=== PATIENT | male | born 1970 | race Caucasian/White ===

== ENCOUNTER 2018-08-12 11:01 | Emergency (ER) | payer BC ==
--- OUTSIDE RECORDS SUMMARY | 2018-08-12 11:07 | XMS REPORT | Continuity of Care Document ---
:1970 Author Organization Interface Problems Problem Status Onset Classification Date Comments Source Date Reported Low testosterone Active Problem 01/20[facility]2015 [facility] Low HDL Active Problem 01/20/2015 [facility] Leg swelling Active Problem 01/20/2015 [facility] Prediabetes Active Problem 01/20/2015 [facility] Allergic Active Problem 01/20/2015 [facility] Hypogonadism in Active Problem 10/13/2015 [facility] Allergic Active Problem 10/13/2015 [facility] Pre-diabetes Active Problem 10/13/2015 [facility] ED Active Problem 10/13/2015 [facility] GILSON Active Problem 10/13/2015 [facility] Obesity Active Problem 10/13/2015 [facility] Tobacco abuse Active Diagnosis 07/01/2015 [facility] Sinusitis Active Diagnosis 07/01/2015 [facility] Postnasal drip Active Diagnosis 07/01/2015 [facility] Tobacco abuse Active Diagnosis 07/01/2015 [facility] Medications Medication Details Route Status Patient Ordering Order Source Instructions Provider Date Dymista 1 puff in Nasally Active 137-50 MCG/ACT [place] each Nasally Twice 016 Primary nostril [facility] Cialis 1 tablet Orally Active 20 MG Orally [place] every 24 hrs 016 [facility] Bactrim DS 1 tablet Orally Active 800-160 MG [place] Orally Once a 016 [facility] Chantix as Orally Active 0.5 MG X 11 & [place] Starting Month directed 1 MG X 42 015 Primary Rajat Orally every Care day (qd) Assoc Androderm as Transdermal Active 4 mg/24 hr [place] directed Transdermal 015 Primary Once a day [facility] Aspirin 1 tablet by mouth Active 81 MG by mouth [place] daily [facility] AndroGel Pump 3 pumps Transdermal Active 20.25 MG/ACT [place] (1.62%) Primary Transdermal Care daily Assoc Vitamin D 1 tablet Orally Active 5000 Orally [place] Once a day [facility] Multivitamins Unknown Orally Active Orally [place] [facility] Allergies, Adverse Reactions, Alerts Substance Category Reaction Severity Reaction Status Date Comments Source type Reported N.K.D.A. Adverse Info Not Adverse Active NE Reaction Available Reaction 6 [facility] Immunizations Immunization Date Given Site Status Last Updated Comments Source Results Order Results Value Reference Date Interpretation Comments Source Name Range Vital Signs Vital Sign Value Date Comments Source Weight 246.6 06/13/2015 [facility] Height 70 06/13/2015 [facility] Temperature Oral (F) 97.6 F 06/13/2015 [facility] Heart Rate 72 06/13/2015 [facility] Diastolic (mm Hg) 95 06/13/2015 [facility] Systolic (mm Hg) 156 06/13/2015 [facility] Encounters Location Location Encounter Encounter Reason Attending ADM DC Status Source Details Type Number For Provider Date Date Visit [facility] [id number] 12/05 12/05 [facility] Primary member get [id number] /2014 [facility] est [id number] [facility], [id number] [facility]oc [place] [facility] [id number] 12/05 12/05 [facility] Primary member get [id number] Primary Care est [id number] [facility], 2bdada Assoc [facility] [id number] 12/05 12/05 [facility] Primary member get [id number] Primary Care est [id number] [facility], [id number] [facility]oc [facility] [id number] 12/05 12/05 [facility] Primary member get [id number] /2014 Primary Care est [id number] [facility], [id number] Assoc [facility] 2 week follow [id number] 12/19 12/19 [facility] up [id number] /2014 Primary Care [id number] [facility], [id number] Assoc [facility] 2 week follow [id number] 12/19 12/19 [facility] up [id number] /2014 Primary Care [id number] [facility] [id number] [facility] [place] [facility] 2 week follow [id number] 12/19 12/19 NE Primary up [id number] /2014 Primary Care [id number] [facility] [id number] [facility] [place] [facility] 2 week follow [id number] 12/19 12/19 NE Primary up [id number] /2014 Primary Care 191- [facility], [id number] [facility] [place] Increase [id number] 01/18 01/18 NE Primary testosterone [id number] /2014 Primary Care med [id number] [facility] [id number] [facility] [place] Increase [id number] 01/18 01/18 NE Primary testosterone [id number] /2014 Primary Care med [id number] [facility] [id number] [facility] [place] Increase [id number] 01/18 01/18 NE Primary testosterone [id number] /2014 Primary Care med [id number] [facility] [id number] [facility] [place] Increase [id number] 01/18 01/18 NE Primary testosterone [id number] /2014 Primary Care med [id number] [facility] [id number] [facility] [place] Follow-Up 6 [id number] 01/30 01/30 [facility] Primary weeks [id number] /2014 Primary Care [id number] [facility] [id number] [facility] [place] Follow-Up 6 [id number] 01/30 01/30 [facility] weeks [id number] /2014 Primary Care [id number] [facility] [id number] [facility] [place] Follow-Up 6 [id number] 01/30 01/30 [facility] weeks [id number] /2014 Primary Care [id number] [facility] [id number] [facility] [place] follow [id number] 06/13 06/13 NE Primary up/medication [id number] /2015 Primary Care refills and [id number] [facility], labs [id number] [facility]oc [place] follow [id number] 06/13 06/13 NE Primary up/medication [id number] Primary Care refills and [id number] [facility], labs [id number] Assw[facility] [place] follow [id number] 06/13 06/13 [facility] Primary up/medication [id number] Primary Care refills and [id number] [facility] labs [id number] [facility]oc [place] Unknown [id number] 09/30 09/30 NE Primary [id number] Primary Care [id number] [facility], [id number] [facility] [place] Unknown [id number] 09/30 09/30 NE Primary [id number] Primary Care [id number] [facility], [id number] [facility] [place] refill on [id number] 10/11 10/11 [facility] meds [id number] Primary Care [id number] [facility], [id number] [facility]oc [place] Procedures Procedure Code Date Perfomer Comments Source
--- OUTSIDE RECORDS SUMMARY | 2018-08-12 11:08 | XMS REPORT ---
:1970 Author Organization eClinicalWorks Care Team Providers Name Role Phone Iris Anderson Provider Role Unavailable Allergies, Adverse Reactions, Alerts Substance Reaction Event Type N.K.D.A. Info Not Available Non Drug Allergy Encounters Encounter Location Date Follow-Up 6 weeks [facility], Jan 30, 2015 [place] follow up/medication refills and labs [facility], Jun 13, 2015 [place] [facility] [place] get est [facility], December 05, 2014 [place] 2 week follow up [facility], Dec 19, 2014 [place] Increase testosterone med [facility], Jan 18, 2015 [place] Problems Problem Type Condition ICD-9 Code Onset Dates Condition Status Assessment ED (erectile dysfunction) N52.9 Active Assessment GILSON (obstructive sleep apnea) G47.33 Active Assessment Obesity E66.9 Active Problem Hypogonadism in male E29.1 Active Problem Allergic rhinitis J30.9 Active Problem Pre-diabetes R73.09 Active Problem ED (erectile dysfunction) N52.9 Active Assessment Hypogonadism in male E29.1 Active Problem GILSON (obstructive sleep apnea) G47.33 Active Problem Obesity E66.9 Active Assessment Tobacco abuse Z72.0 Active Assessment Sinusitis J32.9 Active Assessment Postnasal drip R09.82 Active Assessment Tobacco abuse counseling Z71.6 Active Assessment Allergic rhinitis J30.9 Active Medications Medication Code System Code Instructions Start End Status Dosage Date Date Dymista MEDISPAN 137-50 MCG/ACT Jun 13, Active 1 puff in 45-23 Nasally Twice a 2016 each day nostril Cialis MEDISPAN 28234-68 20 MG Orally Jun 13, Active 1 tablet 64-30 every 24 hrs 2015 Vitamin D MEDISPAN 72601-01 5000 Orally Active 1 tablet 17-01 Once a day AndroGel Pump MEDISPAN 94871-98 20.25 MG/ACT Active 2 pumps 62-33 (1.62%) Transdermal daily Chantix Starting MEDISPAN 76428-93 0.5 MG X 11 & 1 Dec 19, Active as directed Month Rajat 71-02 MG X 42 Orally 2014 every day (qd) [facility]59 81 MG by mouth Active 1 tablet 14-07 daily Bactrim DS MEDISPAN 74593-89 800-160 MG Jun 13, Active 1 tablet 60-01 Orally Once a 2016 day Multivitamins MEDISPAN 91260-76 Orally Active Unknown 73-06 Social History Social History Element Qualifiers Date Reported Tobacco Use: . Are you a: current smoker, Number of packs Jun 13, 2015 per day: 1, Age started: 14 started age 14 quite for 9 yrs started back age 39 Sexual Hx: . Had sex in the last 12 months (vaginal, Jun 13, 2015 oral, or anal)?: Yes, with: Women only, Use protection?: No, Have you ever had an STD?: No Tobacco Use (Smart Form): . How often do you smoke cigarettes?: every Jun 13, 2015 day , How many cigarettes a day do you smoke?: 11-20, How soon after you wake up do you smoke your first cigarette?: 6-30 min, Are you interested in quitting?: Ready to quit Do you have pets? . Status: No Jun 13, 2015 Marital Status: . answer Jun 13, 2015 Caffeine intake? . Status: Yes, What type: Coffee, Tea, Jun 13, 2015 Chocolate Do you exercise? . Answer: No Jun 13, 2015 Do you drink alcohol? . Status: Yes, Type: Beer, Daily 2 16oz a Jun 13, 2015 day Occupation: . [employer] Jun 13, 2015 Vital Signs Date/Time: Jun 13, 2015 Weight 246.6 lbs Height 70 in Temperature 97.6 F Cardiac Monitoring Heart Rate 72 /min Blood Pressure Diastolic 95 mm Hg Blood Pressure Systolic 156 mm Hg Results CBC (INCLUDES DIFF/PLT) ABSOLUTE NEUTROPHILS(-4639-6421 cells/uL) 6056 MPV(-7.5-11.5 fL) 9.9 EOSINOPHILS(- %) 1.2 HEMOGLOBIN(-13.2-17.1 g/dL) 16.4 MONOCYTES(- %) 10.0 HEMATOCRIT(-38.5-50.0 %) 50.3 LYMPHOCYTES(- %) 26.7 MCV(-80.0-100.0 fL) 94.0 NEUTROPHILS(- %) 61.8 MCH(-27.0-33.0 pg) 30.7 ABSOLUTE BASOPHILS(-0-200 cells/uL) 29 MCHC(-32.0-36.0 g/dL) 32.6 BASOPHILS(- %) 0.3 ABSOLUTE EOSINOPHILS(-15-500 cells/uL) 118 RDW(-11.0-15.0 %) 13.2 WHITE BLOOD CELL COUNT(-3.8-10.8 Thousand/uL) 9.8 PLATELET COUNT(-140-400 Thousand/uL) 196 ABSOLUTE MONOCYTES(-200-950 cells/uL) 980 RED BLOOD CELL COUNT(-4.20-5.80 Million/uL) 5.35 ABSOLUTE LYMPHOCYTES(-850-3900 cells/uL) 2617 TESTOSTERONE, FREE AND TOTAL, LC/MS/MS TESTOSTERONE, TOTAL, LC/MS/MS(-250-1100 ng/dL) 264 FREE TESTOSTERONE(-35.0-155.0 pg/mL) 40.0 VITAMIN D, 25 HYDROXY AND 1,25 DIHYDROXY, LC/MS/MS VITAMIN D2, 1,25 (OH)2(- pg/mL) <8 VITAMIN D, 1,25 (OH)2, TOTAL(-18-72 pg/mL) 69 VITAMIN D3, 1,25 (OH)2(- pg/mL) 69 VITAMIN D, 25-OH, D3(-See Below ng/mL) 40 VITAMIN D, 25-OH, D2(-See Below ng/mL) <4 VITAMIN D, 25-OH, TOTAL(-30-100 ng/mL) 40 Summary Purpose eClinicalWorks Submission
--- OUTSIDE RECORDS SUMMARY | 2018-08-12 11:08 | XMS REPORT ---
:1970 Author Organization eClinicalWorks Care Team Providers Name Role Phone Iris Anderson Provider Role Unavailable Encounters Encounter Location Date New [facility] member get est [facility] [place] December 05, 2014 2 week follow up [facility] [place] Dec 19, 2014 Increase testosterone med [facility] [place] Jan 18, 2015 Problems Problem Type Condition ICD-9 Code Onset Dates Condition Status Problem Low testosterone 257.2 Active Problem Low HDL (under 40) 272.5 Active Problem Leg swelling 729.81 Active Problem Prediabetes 790.29 Active Problem Allergic rhinitis 477.9 Active Medications Medication Code System Code Instructions Start End Date Status Dosage Date Aspirin MEDISPAN 30219-70 81 MG by mouth Active 1 tablet 14-07 daily Chantix MEDISPAN 53937-34 0.5 MG X 11 & 1 Dec 19, Active as directed Starting Month 71-02 MG X 42 Orally 2015 Rajat every day (qd) AndroGel Pump MEDISPAN 55490-81 20.25 MG/ACT Active 2 pumps 62-33 (1.62%) Transdermal daily Androderm MEDISPAN 26234-19 4 mg/24 hr Dec 19, Active as directed 70-30 Transdermal Once 2014 a day Social History Social History Element Qualifiers Date Reported Tobacco Use: . Are you a: current smoker, Number of packs Dec 19, 2014 per day: 1, Age started: 14 started age 14 quite for 9 yrs started back age 39 Sexual Hx: . Had sex in the last 12 months (vaginal, Dec 19, 2014 oral, or anal)?: Yes, with: Women only, Use protection?: No, Have you ever had an STD?: No Tobacco Use (Smart Form): . How often do you smoke cigarettes?: every Dec 19, 2014 day , How many cigarettes a day do you smoke?: 11-20, How soon after you wake up do you smoke your first cigarette?: 6-30 min, Are you interested in quitting?: Ready to quit Do you have pets? . Status: No Dec 19, 2014 Marital Status: . answer Dec 19, 2014 Caffeine intake? . Status: Yes, What type: Coffee, Tea, Dec 19, 2014 Chocolate Do you exercise? . Answer: No Dec 19, 2014 Do you drink alcohol? . Status: Yes, Type: Beer, Daily 2 16oz a Dec 19, 2014 day Occupation: [employer] Dec 19, 2014 Summary Purpose eClinicalWorks Submission
--- OUTSIDE RECORDS SUMMARY | 2018-08-12 11:08 | XMS REPORT ---
:1970 Author Organization eClinicalWorks Care Team Providers Name Role Phone Iris Anderson Provider Role Unavailable Encounters Encounter Location Date Follow-Up 6 weeks [facility], Jan 30, 2015 [place] follow up/medication refills and labs [facility], Jun 13, 2015 [place] Unknown [facility], October 01, 2015 [place] [facility] [place] get est [facility], December 05, 2014 [place] 2 week follow up [facility], Dec 19, 2014 [place] Increase testosterone med [facility], Jan 18, 2015 [place] Problems Problem Type Condition ICD-9 Code Onset Dates Condition Status Problem Hypogonadism in male E29.1 Active Problem Allergic rhinitis J30.9 Active Problem Pre-diabetes R73.09 Active Problem ED (erectile dysfunction) N52.9 Active Problem GILSON (obstructive sleep apnea) G47.33 Active Problem Obesity E66.9 Active Social History Social History Element Qualifiers Date [...] Jun 13, 2015 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
--- OUTSIDE RECORDS SUMMARY | 2018-08-12 11:08 | XMS REPORT ---
:1970 Author Organization eClinicalWorks Care Team Providers Name Role Phone Iris Anderson Provider Role Unavailable Encounters Encounter Location Date Follow-Up 6 weeks [facility], Jan 30, 2015 [place] follow up/medication refills and labs [facility], Jun 13, 2015 [place] Unknown [facility], October 01, 2015 [place] refill on meds [facility], October 12, 2015 [place] New [facility] [place] get est [facility], December 05, 2014 [place] 2 week follow up [facility], Dec 19, 2014 [place] Increase testosterone med [facility], Jan 18, 2015 [place] Problems Problem Type Condition ICD-9 Code Onset Dates Condition Status Problem Hypogonadism in male E29.1 Active Problem Allergic rhinitis J30.9 Active Problem Pre-diabetes R73.09 Active Problem ED (erectile dysfunction) N52.9 Active Problem GILSON (obstructive sleep apnea) G47.33 Active Problem Obesity E66.9 Active Medications Medication Code System Code Instructions Start Date End Date Status Dosage AndroGel Pump MEDISPAN 28848-030 20.25 MG/ACT Active 3 pumps 2-33 (1.62%) Transdermal daily Social History Social History Element Qualifiers Date [...] 16oz a Jun 13, 2015 day Occupation: [employer] Jun 13, 2015 Summary Purpose eClinicalWorks Submission
--- NOTE | 2018-08-12 11:26 | RAD REPORT ---
EXAM DESCRIPTION: CT - Ct Stroke Brain Wo Cont - 08/12/2018 11:17 am CLINICAL HISTORY: Left numbness COMPARISON: None. TECHNIQUE: Computed axial tomography of the head was obtained. Unenhanced and enhanced images obtain ed. 50 cc Isovue-[address] scans are performed using dose optimization technique as appropriate and may include automated exposure control or mA/KV adjustment according to patient size. FINDINGS: An intracranial bleed is not seen . The ventricles are normal in caliber. No extra-axial fluid collection is noted. No abnormal enhancement seen Left mastoid is completely opacified IMPRESSION: No acute intracranial abnormality is seen. If patient's symptoms persist MRI of the bra in would be recommended. Complete opacification of the left mastoid may indicate mastoiditis Dr. Lopez of the emergency room was notified at 1122 a.m. August 12, 2018
--- NOTE | 2018-08-12 11:31 | RAD REPORT ---
EXAM DESCRIPTION: RAD - Chest Single View - 08/12/2018 11:24 am CLINICAL HISTORY: Facial tingling, Stroke protocol chest film COMPARISON: None. TECHNIQUE: AP portable chest image was obtained 1120 hours . FINDINGS: Lungs are clear. Heart and vasculature are normal. No measurable pleural effusion and no p neumothorax. No acute bony abnormality seen. No acute aortic findings suspected. IMPRESSION: No acute cardiopulmonary process.
[2018-08-12 11:34] LABS: Absolute Lymphocytes (CBC) 2.2 K/uL (0.7-4.9); Absolute Monocytes 0.8 K/uL (0.1-1.3); Absolute Neutrophil 5.1 K/uL (1.8-8.0); Basophils % 0.8 % (0-1.3); Eosinophils % 1.3 % (0-4.4); Hematocrit 48.7 % (39.6-49.0); Lymphocytes % 26.2 % (15.3-44.8); MPV 9.8 fL (7.6-11.3); Monocytes % 10.1 % (3.3-12.3); RBC Red Blood Cell Count 5.23 M/uL (4.33-5.43)
[2018-08-12 11:40] LABS: Protime INR 0.93
[2018-08-12 12:02] LABS: Potassium 4.1 mmol/L (3.5-5.1)
--- NOTE | 2018-08-12 13:18 | RAD REPORT ---
EXAM DESCRIPTION: MRI - Brain Wo Cont - 08/12/2018 1:01 pm CLINICAL HISTORY: Left facial numbness COMPARISON: August 12, [address] TECHNIQUE: Axial, sagittal, and coronal magnetic images of the brain were obtained. Contrast was not requested FINDINGS: No significant abnormal signal is present within the brain. Diffusion-weighted/ADC mapping does not reveal evidence of acute infarction. The ventricles are normal caliber. An extra-axial fluid collection is not present Signal is present throughout left mastoid. Signal is also seen within the left middle ear. . Adenoidal hypertrophy is present IMPRESSION: Left mastoiditis/otitis media suspected No acute intracranial abnormality Adenoidal hypertrophy
--- NOTE | 2018-08-12 14:31 | EDPHYS ---
Physician Documentation [facility] Name: Maximino Hall Age: 48 yrs Sex: Male : 1970 Arrival Date: 08/12/2018 Time: 11:05 Bed 2 Private MD: ED Physician Rodrigo Lopez HPI: 08/12 11:37 This 48 yrs old Male presents to ER via EMS with complaints of High Blood kdr Pressure. 11:37 The patient has elevated blood pressure and discovered this At work. Onset: The kdr symptoms/episode began/occurred suddenly. Modifying factors: The symptoms are aggravated by activity, The symptoms are alleviated by NOthing. Associated signs and symptoms: The patient has no apparent associated signs or symptoms. Severity of symptoms: At its worst the blood pressure was mild, in the emergency department the blood pressure is improved, moderately. The patient has not experienced similar symptoms in the past. The patient has not recently seen a physician. Historical: - Allergies: 11:11 No Known Allergies; ss - Home Meds: 11:11 aspirin 81 mg Oral TbEC 1 tab once daily [Active]; ss - PMHx: 11:11 None; ss - PSHx: 11:11 Appendectomy; ss - Immunization history:: Adult Immunizations unknown. - Social history:: Smoking status: Patient/guardian denies using tobacco. - Ebola Screening: : Patient denies exposure to infectious person Patient denies travel to an Ebola-affected area in the 21 days before illness onset. ROS: 11:30 Constitutional: Negative for fever, chills, and weight loss, Eyes: Negative for injury, kdr pain, redness, and discharge, ENT: Negative for injury, pain, and discharge, Neck: Negative for injury, pain, and swelling, Cardiovascular: Negative for chest pain, palpitations, and edema, Respiratory: Negative for shortness of breath, cough, wheezing, and pleuritic chest pain, Abdomen/GI: Negative for abdominal pain, nausea, vomiting, diarrhea, and constipation, Back: Negative for injury and pain, : Negative for injury, bleeding, discharge, and swelling, MS/Extremity: Negative for injury and deformity, Skin: Negative for injury, rash, and discoloration, Psych: Negative for depression, anxiety, suicide ideation, homicidal ideation, and hallucinations, Allergy/Immunology: Negative for hives, rash, and allergies, Endocrine: Negative for neck swelling, polydipsia, polyuria, polyphagia, and marked weight changes, Hematologic/Lymphatic: Negative for swollen nodes, abnormal bleeding, and unusual bruising. 11:30 Neuro: Positive for tingling, of the left zygomatic area, left cheek and left mandible. Exam: 11:30 Constitutional: This is a well developed, well nourished patient who is awake, alert, kdr and in no acute distress. Head/Face: Normocephalic, atraumatic. Eyes: Pupils equal round and reactive to light, extra-ocular motions intact. Lids and lashes normal. Conjunctiva and sclera are non-icteric and not injected. Cornea within normal limits. Periorbital areas with no swelling, redness, or edema. ENT: Nares patent. No nasal discharge, no septal abnormalities noted. Tympanic membranes are normal and external auditory canals are clear. Oropharynx with no redness, swelling, or masses, exudates, or evidence of obstruction, uvula midline. Mucous membranes moist. Neck: Trachea midline, no thyromegaly or masses palpated, and no cervical lymphadenopathy. Supple, full range of motion without nuchal rigidity, or vertebral point tenderness. No Meningismus. Chest/axilla: Normal chest wall appearance and motion. Nontender with no deformity. No lesions are appreciated. Cardiovascular: Regular rate and rhythm with a normal S1 and S2. No gallops, murmurs, or rubs. Normal PMI, no JVD. No pulse deficits. Respiratory: Lungs have equal breath sounds bilaterally, clear to auscultation and percussion. No rales, rhonchi or wheezes noted. No increased work of breathing, no retractions or nasal flaring. Abdomen/GI: Soft, non-tender, with normal bowel sounds. No distension or tympany. No guarding or rebound. No evidence of tenderness throughout. Back: No spinal tenderness. No costovertebral tenderness. Full range of motion. Skin: Warm, dry with normal turgor. Normal color with no rashes, no lesions, and no evidence of cellulitis. MS/ Extremity: Pulses equal, no cyanosis. Neurovascular intact. Full, normal range of motion. Neuro: Awake and alert, GCS 15, oriented to person, place, time, and situation. Cranial nerves II-XII grossly intact. Motor strength 5/5 in all extremities. Sensory grossly intact. Cerebellar exam normal. Normal gait. Psych: Awake, alert, with orientation to person, place and time. Behavior, mood, and affect are within normal limits. 11:30 ECG was reviewed by the Attending Physician. Vital Signs: 11:11 BP 160 / 99; Pulse 82; Resp 18; Pulse Ox 99% on R/A; Weight 110.22 kg; Height 5 ft. 10 ss in. (177.80 cm); Pain 0/10; 11:32 Temp 98.3; jl7 13:00 BP 154 / 100; Pulse 70; Resp 16 S; Pulse Ox 99% on R/A; jl7 13:44 BP 147 / 100; Pulse 69; Resp 16 S; Pulse Ox 100% on R/A; jl7 14:45 BP 136 / 95; Pulse 71; Resp 16 S; Pulse Ox 100% on R/A; jl7 15:28 BP 132 / 81; Pulse 70; Resp 16 S; Pulse Ox 99% on R/A; Pain 0/10; jl7 11:11 Body Mass Index 34.87 (110.22 kg, 177.80 cm) ss MDM: 14:30 Patient medically screened. kdr 16:18 Data reviewed: vital signs, nurses notes, lab test result(s), radiologic studies. kdr Counseling: I had a detailed discussion with the patient and/or guardian regarding: the historical points, exam findings, and any diagnostic results supporting the discharge/admit diagnosis, lab results, radiology results, the need for outpatient follow up. Physician consultation: Marlyn Chatterjee MD regarding patient's condition, and will see patient in office, next week. 08/12 11:09 Order name: Basic Metabolic Panel; Complete Time: 13:12 kdr 08/12 11:09 Order name: CBC with Diff; Complete Time: 13:12 kdr 08/12 11:09 Order name: Protime (+inr); Complete Time: 13:12 kdr 08/12 11:09 Order name: Ptt, Activated; Complete Time: 13:12 kdr 08/12 11:09 Order name: CT Stroke Brain w/o Contrast; Complete Time: 11:30 kdr 08/12 13:58 Order name: Glucose, Ancillary Testing EDMS 08/12 11:09 Order name: Stroke CXR 1 View; Complete Time: 13:12 kdr 08/12 11:09 Order name: EKG; Complete Time: 11: kdr 08/12 11:09 Order name: Accucheck; Complete Time: kdr 08/12 11:09 Order name: Cardiac monitoring; Complete Time: kdr 08/12 11:09 Order name: EKG - Nurse/Tech; Complete Time: kdr 08/12 11:09 Order name: IV Saline Lock; Complete Time: [facility] 08/12 13:00 Order name: Brain Wo Cont; Complete Time: 13:34 EDRI 08/12 11:09 Order name: Labs collected and sent; Complete Time: kdr 08/12 11:09 Order name: NPO; Complete Time: kdr 08/12 11: Order name: O2 Per Protocol; Complete Time: kdr 08/12 11:09 Order name: O2 Sat Monitoring; Complete Time: kdr 08/12 11:09 Order name: Stroke Swallow Screen; Complete Time: kdr EC:30 Rate is 78 beats/min. Rhythm is regular. QRS Griffith is Normal. AL interval is normal. QRS kdr interval is normal. QT interval is normal. No Q waves. T waves are Normal. Clinical impression: Normal ECG. Administered Medications: No medications were administered Point of Care Testing: Blood Glucose: 11:32 Blood Glucose: 86 mg/dL; jl7 Ranges: Critical Glucose Levels:Adult <50 mg/dl or >400 mg/dl <40 mg/dl or >180 mg/dl Disposition: 08/12/18 14:30 Discharged to Home. Impression: Mastoiditis and related conditions. - Condition is Stable. - Discharge Instructions: Mastoiditis, Pediatric. - Medication Reconciliation Form, Thank You Letter, Antibiotic Education form. - Follow up: Marlyn Chatterjee MD; When: 2 - 3 days; Reason: Further diagnostic work-up, Recheck today's complaints, Continuance of care, Re-evaluation by your physician. - Problem is an ongoing problem. - Symptoms are unchanged. - Notes: Please call Dr. Chatterjee's office to arrange an appointment for further evaluation and treatment Signatures: Dispatcher [employer] Rodrigo Max MD MD [facility] Vannesa Mariee RN RN Misty Joe RN RN jl7 Corrections: (The following items were deleted from the chart) 13:00 11:25 Stroke Protocol ordered. EDRI EDMS 15:29 14:30 08/12/2018 14:30 Discharged to Home. Impression: Mastoiditis and related jl7 conditions. Condition is Stable. Forms are Medication Reconciliation Form, Thank You Letter, Antibiotic Education, Prescription Opioid Use. Follow up: Marlyn Chatterjee; When: 2 - 3 days; Reason: Further diagnostic work-up, Recheck today's complaints, Continuance of care, Re-evaluation by your physician. Problem is an ongoing problem. Symptoms are unchanged. kdr
--- NOTE | 2018-08-12 14:31 | ER ---
Nurse's Notes [facility] Name: Maximino Hall Age: 48 yrs Sex: Male : 1970 Arrival Date: 08/12/2018 Time: 11:05 Bed 2 Private MD: Diagnosis: Mastoiditis and related conditions Presentation: 08/12 11:05 Presenting complaint: Patient states: high blood pressure a with L jaw aching and L ss sided facial tingling since 629 this morning. Pt denies a history of high blood pressure. Transition of care: patient was not received from another setting of care. Onset of symptoms was August 12, 2018 at 06:30. Risk Assessment: Do you want to hurt yourself or someone else? Patient reports no desire to harm self or others. Initial Sepsis Screen: Does the patient meet any 2 criteria? No. Patient's initial sepsis screen is negative. Does the patient have a suspected source of infection? No. Patient's initial sepsis screen is negative. 11:05 Method Of Arrival: EMS: [facility] ss 11:05 Acuity: VIJAY 2 ss 11:17 Care prior to arrival: BP reading at work was 194/137, 202/143. ss Historical: - Allergies: 11:11 No Known Allergies; ss - Home Meds: 11:11 aspirin 81 mg Oral TbEC 1 tab once daily [Active]; ss - PMHx: 11:11 None; ss - PSHx: 11:11 Appendectomy; ss - Immunization history:: Adult Immunizations unknown. - Social history:: Smoking status: Patient/guardian denies using tobacco. - Ebola Screening: : Patient denies exposure to infectious person Patient denies travel to an Ebola-affected area in the 21 days before illness onset. Screenin:05 VAN Screening: Arm Drift: Patient shows no arm weakness. Patient is VAN negative. ss Visual Disturbance: No visual disturbance noted. Aphasia: No aphasia noted. Neglect: No neglect noted. 11:14 Abuse screen: Denies threats or abuse. Denies injuries from another. Nutritional jl7 screening: No deficits noted. Tuberculosis screening: No symptoms or risk factors identified. Fall Risk IV access (20 points). Total Murray Fall Scale indicates No Risk (0-24 pts). 11:20 The patient has not been NPO before screening. The patient is currently on the jl7 following diet: Regular The patient is alert, able to follow commands. The patient does not exhibit slurred or garbled speech The patient is not exhibiting difficulty speaking. The patient does not exhibit difficulty understanding words. The patient is able to swallow own secretions with no drooling or need for suction. Patient tolerated one teaspoon of water. No drooling, immediate coughing, gurgling, or clearing of the throat was noted. The patient tolerated 90mL of water. No drooling, immediate coughing, gurgling, or clearing of the throat was noted. The patient passed the bedside swallow screening. Oral medications may be given as ordered. Contact Physician for further diet orders. Provider notified of bedside swallow screening results: Rodrigo Lopez MD. Assessment: 11:12 General: Appears in no apparent distress. uncomfortable, Behavior is calm, cooperative, jl7 appropriate for age. Pain: Denies pain. Neuro: Level of Consciousness is awake, alert, obeys commands, Oriented to person, place, time, situation, Reports tingling to left side of face since 0630. Cardiovascular: Heart tones S1 S2 present Patient's skin is warm and dry. Respiratory: Airway is patent Respiratory effort is even, unlabored, Respiratory pattern is regular, symmetrical, Breath sounds are clear bilaterally. GI: No signs and/or symptoms were reported involving the gastrointestinal system. : No signs and/or symptoms were reported regarding the genitourinary system. EENT: No signs and/or symptoms were reported regarding the EENT system. Derm: Skin is pink, warm \T\ dry. 12:15 Reassessment: Patient appears in no apparent distress at this time. Patient and/or jl7 family updated on plan of care and expected duration. Pain level reassessed. Patient is alert, oriented x 3, equal unlabored respirations, skin warm/dry/pink. 13:45 Reassessment: Patient appears in no apparent distress at this time. Patient and/or jl7 family updated on plan of care and expected duration. Pain level reassessed. Patient is alert, oriented x 3, equal unlabored respirations, skin warm/dry/pink. Patient denies pain at this time. 14:45 Reassessment: Patient appears in no apparent distress at this time. Patient and/or jl7 family updated on plan of care and expected duration. Pain level reassessed. Patient is alert, oriented x 3, equal unlabored respirations, skin warm/dry/pink. Patient states feeling better. Vital Signs: 11:11 BP 160 / 99; Pulse 82; Resp 18; Pulse Ox 99% on R/A; Weight 110.22 kg; Height 5 ft. 10 ss in. (177.80 cm); Pain 0/10; 11:32 Temp 98.3; jl7 13:00 BP 154 / 100; Pulse 70; Resp 16 S; Pulse Ox 99% on R/A; jl7 13:44 BP 147 / 100; Pulse 69; Resp 16 S; Pulse Ox 100% on R/A; jl7 14:45 BP 136 / 95; Pulse 71; Resp 16 S; Pulse Ox 100% on R/A; jl7 15:28 BP 132 / 81; Pulse 70; Resp 16 S; Pulse Ox 99% on R/A; Pain 0/10; jl7 11:11 Body Mass Index 34.87 (110.22 kg, 177.80 cm) ED Course: 11:05 Patient arrived in ED. ss 11:07 Rodrigo Lopez MD is Attending Physician. kdr 11:10 Triage completed. ss 11:11 Arm band placed on right wrist. ss 11:12 Misty Agustin, NINO is Primary Nurse. jl7 11:14 Patient has correct armband on for positive identification. Placed in gown. Bed in low jl7 position. Call light in reach. Side rails up X 1. manager legal on. Pulse ox on. NIBP on. Warm blanket given. 11:14 Initial lab(s) drawn, by vt, sent to lab. Inserted saline lock: 20 gauge in right jl7 antecubital area, using aseptic technique. Blood collected. 11:16 CT Stroke Brain w/o Contrast In Process Unspecified. EDMS 11:17 CT completed. Patient tolerated procedure well. Patient moved to CT via wheelchair. sj Patient moved to radiology Patient moved back from CT. 11:21 X-ray completed. Patient tolerated procedure well. Patient moved back from radiology. sw 11:22 Stroke CXR 1 View In Process Unspecified. EDMS 11:31 EKG done, by fire alarm technician. reviewed by Rodrigo Lopez MD. at1 12:57 Patient moved to MRI via wheelchair. lc 13:01 Brain Wo Cont In Process Unspecified. EDMS 13:58 called the [facility] transfer center and spoke with Bianka who will page the ENT on eb call for patient consultation. 14:29 Marlyn Chatterjee MD is Referral Physician. kdr 15:28 No provider procedures requiring assistance completed. IV discontinued, intact, jl7 bleeding controlled, No redness/swelling at site. Pressure dressing applied. Administered Medications: No medications were administered Point of Care Testing: Blood Glucose: 11:32 Blood Glucose: 86 mg/dL; jl7 Ranges: Outcome: 14:30 Discharge ordered by . kdr 15:28 Discharged to home ambulatory. jl7 15:28 Condition: stable 15:28 Discharge instructions given to patient, family, Instructed on discharge instructions, follow up and referral plans. Demonstrated understanding of instructions, follow-up care. 15:29 Patient left the ED. jl7 Signatures: Dispatcher [employer] EDMS Rodrigo Lopez MD MD [facility] Roseann Murillo, Vannesa Garcia, RN RN Shawnee Foster, broiler chef or cook EKG Tat1 Doris George Jahala, RN RN jl7 Edna Loyola Corrections: (The following items were deleted from the chart) 11:18 11:05 Care prior to arrival: None. [facility]
== END 2018-08-12 15:29 | disposition home or self-care (01) ==
LOC: ER 11:01
DX: H70.90 Unspecified mastoiditis, unspecified ear (principal); R03.0 Elevated blood-pressure reading, without diagnosis of hypertension; Z79.82 Long term (current) use of aspirin
CPT/HCPCS: 36415; 70450; 70551; 71045; 80048; 82962; 85025; 85610; 85730; 93005; 99285